=== PATIENT | female | born 1950 | race Caucasian/White ===

== ENCOUNTER 2017-06-04 13:24 | Emergency (ER) | payer BC, OTHER, SELFPAY ==
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
== END 2017-06-04 14:48 | disposition home or self-care (01) ==
LOC: MADERS 13:24
DX: S63.502A Unspecified sprain of left wrist, initial encounter (principal); S60.222A Contusion of left hand, initial encounter; M81.0 Age-related osteoporosis without current pathological fracture; E03.9 Hypothyroidism, unspecified; F41.9 Anxiety disorder, unspecified; Z79.899 Other long term (current) drug therapy; V49.9XXA Car occupant (driver) (passenger) injured in unspecified traffic accident, initial encounter

== ENCOUNTER 2022-02-13 17:31 | Emergency (ER) | payer OTHER ==
[2022-02-13] MEDS ORDERED: Ondansetron ODT 4 MG TAB ONE (18:31)
== END 2022-02-13 18:35 | disposition home or self-care (01) ==
LOC: MADERS 17:31
DX: R11.2 Nausea with vomiting, unspecified (principal); T45.2X5A Adverse effect of vitamins, initial encounter; E03.9 Hypothyroidism, unspecified; Z79.890 Hormone replacement therapy
CPT/HCPCS: 99283; Q0162